=== PATIENT | male | born 1995 | race Caucasian/White ===

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

== ENCOUNTER 2020-04-01 16:44 | Inpatient (IN) | payer BC ==
[2020-04-01] MEDS ORDERED: HYDROmorphone 0.5 MG/0.5 ML Syringe IVPUSH ONE ×2 (17:07→19:13)
[2020-04-01] MEDS ORDERED: Ondansetron 4 MG/2 ML SDV IVPUSH ONE (17:07)
[2020-04-01] MEDS ORDERED: Sodium Chloride 0.9% 1,000 ML IV SCH (17:15)
--- NOTE | 2020-04-01 17:22 | EDM.PDOC ---
ED HPI GENERAL MEDICAL PROBLEM - General Chief Complaint: Abdominal Pain Stated Complaint: ABD PAIN AND WAS VOMITING Time Seen by Provider: 04/01/20 17:00 Source of Information: Reports: Patient, Family History Limitations: Reports: No Limitations - History of Present Illness INITIAL COMMENTS - FREE TEXT/NARRATIVE: 24-year-old male who developed nausea and vomiting 3 hours ago, is having intense abdominal cramps and vomiting but no diarrhea. No radiation of pain to the back, no fevers or chills. He arrives very anxious and uncomfortable. I saw him with a similar syndrome 2 years ago and his work-up was negative. Onset: Sudden (Started fairly suddenly 3-1/2 hours ago) Location: Reports: Abdomen Improves with: Reports: None Worsens with: Reports: Other (Trying to eat or drink, causes him to vomit) Associated Symptoms: Reports: Nausea/Vomiting, Other (Abdominal cramps). Denies: Chest Pain, Cough, Fever/Chills Right Lower Abdomen Pain Score (Numeric/FACES): 7 - Related Data Allergies Allergy/AdvReac Type Severity Reaction Status Date / Time Sulfa (Sulfonamide Allergy Cannot Verified 04/01/20 16:59 Antibiotics) Remember Home Meds: Home Meds NK [No Known Home Meds] 11/13/17 [History] Past Medical History Cardiovascular History: Reports: Pacemaker Musculoskeletal History: Reports: Fracture Other Musculoskeletal History: finger Neurological History: Reports: Concussion Psychiatric History: Reports: Anxiety, Depression Hematologic History: Reports: Blood Transfusion(s) Social & Family History - Tobacco Use Tobacco Use Status *Q: Current Every Day Tobacco User Years of Tobacco use: 4 Packs/Tins Daily: 1 - Caffeine Use Caffeine Use: Reports: Energy Drinks, Soda - Recreational Drug Use Recreational Drug Use: No ED ROS GENERAL - Review of Systems Review Of Systems: See Below Constitutional: Reports: Malaise. Denies: Fever, Chills HEENT: Denies: Vision Change Respiratory: Denies: Shortness of Breath Cardiovascular: Denies: Chest Pain, Palpitations GI/Abdominal: Reports: Abdominal Pain, Nausea, Vomiting. Denies: Diarrhea Skin: Reports: No Symptoms Neurological: Reports: Dizziness. Denies: Headache Psychiatric: Reports: Anxiety ED EXAM, GI/ABD - Physical Exam Exam: See Below Exam Limited By: No Limitations General Appearance: Alert, Moderate Distress (Patient looks very uncomfortable, mildly hyperventilating) Eyes: Bilateral: Normal Appearance Head: Atraumatic Respiratory/Chest: Lungs Clear Cardiovascular: Regular Rate, Rhythm GI/Abdominal Exam: Tender (Patient has diffuse tenderness to palpation over the entire abdomen with guarding, possible mild distention), Abnormal Bowel Sounds (Bowel sounds to somewhat high-pitched and are very active) Neurological: Alert, Oriented Psychiatric: Anxious Skin Exam: Warm, Dry Course - Vital Signs Last Recorded V/S: Last Vital Signs Temp 96.9 F 04/01/20 17:03 Pulse 65 04/01/20 18:25 Resp 28 H 04/01/20 17:03 BP 136/85 04/01/20 18:25 Pulse Ox 92 L 04/01/20 18:25 - Orders/Labs/Meds Orders: Active Orders 24 hr Category Date Time Status DRUG SCREEN, URINE [URCHEM] Stat Lab 04/01/20 17:08 Ordered UA W/MICROSCOPIC [URIN] Urgent Lab 04/01/20 17:07 Ordered Iopamidol [Isovue-300 (61%)] Med 04/01/20 18:15 Active 100 ml IV . DIRECTED Sodium Chloride 0.9% [Normal Saline] 1,000 ml Med 04/01/20 17:15 Active IV ASDIRECTED Sodium Chloride 0.9% [Normal Saline] 80 ml Med 04/01/20 18:15 Active IV ASDIRECTED Sodium Chloride 0.9% [Saline Flush] Med 04/01/20 18:01 Active 10 ml FLUSH ASDIRECTED PRN Medication Orders Sodium Chloride (Normal Saline) 1,000 mls @ 1,000 mls/hr IV ASDIRECTED DYLAN Last Admin: 04/01/20 17:25 Dose: 1,000 mls/hr Documented by: RODNEY Sodium Chloride (Normal Saline) 80 mls @ 3 mls/sec IV ASDIRECTED DYLAN Last Admin: 04/01/20 18:08 Dose: 3 mls/sec Documented by: DAVYALY Iopamidol (Isovue-300 (61%)) 100 ml IV . DIRECTED DYLAN Last Admin: 04/01/20 18:08 Dose: 100 ml Documented by: DAVYALY Sodium Chloride (Saline Flush) 10 ml FLUSH ASDIRECTED PRN PRN Reason: Keep Vein Open Last Admin: 04/01/20 18:07 Dose: 10 ml Documented by: Mapori Labs: Laboratory Tests 04/01/20 04/01/20 Range/Units 17:16 17:16 WBC 18.6 H (4.5-11.0) K/uL RBC 4.90 (4.30-5.90) M/uL Hgb 13.9 (12.0-15.0) g/dL Hct 40.4 (40.0-54.0) % MCV 82 (80-98) fL MCH 28 (27-31) pg MCHC 34 (32-36) % Plt Count 328 (150-400) K/uL Neut % (Auto) 81 H (36-66) % Lymph % (Auto) 10 L (24-44) % [place] % (Auto) 8 H (2-6) % Eos % (Auto) 1 L (2-4) % Baso % (Auto) 0 (0-1) % Sodium 138 L (140-148) mmol/L Potassium 3.4 L (3.6-5.2) mmol/L Chloride 102 (100-108) mmol/L Carbon Dioxide 21 (21-32) mmol/L Anion Gap 18.4 H (5.0-14.0) mmol/L BUN 16 D (7-18) mg/dL Creatinine 1.0 (0.8-1.3) mg/dL Est Cr Clr Drug Dosing 101.84 mL/min Estimated GFR (MDRD) > 60 (>60) Glucose 107 H (74-106) mg/dL Calcium 9.3 (8.5-10.1) mg/dL Total Bilirubin 0.6 (0.2-1.0) mg/dL AST 16 (15-37) U/L ALT 30 (12-78) U/L Alkaline Phosphatase 72 (46-116) U/L Total Protein 7.9 (6.4-8.2) g/dL Albumin 4.2 (3.4-5.0) g/dL Globulin 3.7 H (2.3-3.5) g/dL Albumin/Globulin Ratio 1.1 L (1.2-2.2) Lipase 64 L (73-393) U/L Meds: Medications Generic Name Dose Route Start Last Admin Trade Name Freq PRN Reason Stop Dose Admin Sodium Chloride 1,000 mls @ 1,000 mls/hr 04/01/20 17:15 04/01/20 17:25 Normal Saline IV 1,000 mls/hr ASDIRECTED DYLAN Administration Sodium Chloride 80 mls @ 3 mls/sec 04/01/20 18:15 04/01/20 18:08 Normal Saline IV 3 mls/sec ASDIRECTED DYLAN Administration Iopamidol 100 ml 04/01/20 18:15 04/01/20 18:08 Isovue-300 (61%) IV 100 ml . DIRECTED DYLAN Administration Sodium Chloride 10 ml 04/01/20 18:01 04/01/20 18:07 Saline Flush FLUSH 10 ml ASDIRECTED PRN Administration Keep Vein Open Discontinued Medications Generic Name Dose Route Start Last Admin Trade Name Virgilq PRN Reason Stop Dose Admin Hydromorphone HCl 0.5 mg 04/01/20 17:07 04/01/20 17:29 Dilaudid IVPUSH 04/01/20 17:08 0.5 mg ONETIME ONE Administration Hydromorphone HCl 0.5 mg 04/01/20 19:13 04/01/20 19:22 Dilaudid IVPUSH 04/01/20 19:14 0.5 mg ONETIME ONE Administration Ondansetron HCl 4 mg 04/01/20 17:07 04/01/20 17:25 Zofran IVPUSH 04/01/20 17:08 4 mg ONETIME ONE Administration - Re-Assessments/Exams Free Text/Narrative Re-Assessment/Exam: 04/01/20 17:21 IV was started, patient will be given 1 L normal saline, 0.5 mg of IV Dilaudid and 4 mg of Zofran. CBC CMP were obtained as well as a urine and urine drug screen. CT of the abdomen and pelvis may be needed again to rule out bowel obstruction which was negative last time. 04/01/20 17:47 Patient was not able to give a urine initially. Pain only minimally decreased with the medications, still very uncomfortable. White count is 18,000, electrolytes are relatively normal. Lipase is normal. We will get a CT of the abdomen and pelvis with IV contrast to rule out bowel obstruction and continue to try to get the urine. 04/01/20 18:59 Impression: Demonstration of a dilated, fluid-filled appendix measuring up to 1.3 centimeters with calcified appendicolith at the base with mild periappendiceal inflammatory changes likely representing uncomplicated appendicitis. Findings were discussed with Dr. Ramesh at 6:50 p.m. 04/01/2020 Reexamined the patient after the above findings were were found on the CT scan, and now that he has calmed down some he is more sore in the lower abdomen. Dr. Alaniz was consulted to admit the patient for acute appendicitis. Departure - Departure Time of Disposition: 20:22 Disposition: Admitted As Inpatient 68 Clinical Impression: Abdominal pain Qualifiers: Abdominal location: generalized Qualified Code(s): R10.84 - Generalized abdominal pain Appendicitis Qualifiers: Appendicitis type: acute appendicitis Acute appendicitis type: with localized peritonitis Appendicitis gangrene presence: without gangrene Appendicitis perforation presence: without perforation Appendicitis abscess presence: without abscess Qualified Code(s): K35.30 - Acute appendicitis with localized peritonitis, without perforation or gangrene - Discharge Information Sepsis Event Note (ED) - Evaluation Sepsis Screening Result: No Definite Risk - Focused Exam Vital Signs: Vital Signs Temp Pulse Resp BP BP Pulse Ox 04/01/20 18:25 65 136/85 92 L 04/01/20 17:03 96.9 F 60 28 H 143/68 H 100 04/01/20 16:56 96.9 F 60 28 H 143/68 H 100 - My Orders Last 24 Hours: My Active Orders 04/01/20 17:07 UA W/MICROSCOPIC [URIN] Urgent 04/01/20 17:08 DRUG SCREEN, URINE [URCHEM] Stat 04/01/20 17:15 Sodium Chloride 0.9% [Normal Saline] 1,000 ml IV ASDIRECTED 04/01/20 18:01 Sodium Chloride 0.9% [Saline Flush] 10 ml FLUSH ASDIRECTED PRN 04/01/20 18:15 Iopamidol [Isovue-300 (61%)] 100 ml IV . DIRECTED Sodium Chloride 0.9% [Normal Saline] 80 ml IV ASDIRECTED - Assessment/Plan Last 24 Hours: My Active Orders 04/01/20 17:07 UA W/MICROSCOPIC [URIN] Urgent 04/01/20 17:08 DRUG SCREEN, URINE [URCHEM] Stat 04/01/20 17:15 Sodium Chloride 0.9% [Normal Saline] 1,000 ml IV ASDIRECTED 04/01/20 18:01 Sodium Chloride 0.9% [Saline Flush] 10 ml FLUSH ASDIRECTED PRN 04/01/20 18:15 Iopamidol [Isovue-300 (61%)] 100 ml IV . DIRECTED Sodium Chloride 0.9% [Normal Saline] 80 ml IV ASDIRECTED
[2020-04-01] MEDS ORDERED: Sodium Chloride 0.9% 10 ML Syringe FLUSH PRN (18:01)
[2020-04-01] MEDS ORDERED: Sodium Chloride 0.9% 80 ML IV SCH (18:15)
[2020-04-01] MEDS ORDERED: Iopamidol 612 MG/ML 100 ML Bottle IV SCH (18:15)
--- NOTE | 2020-04-01 18:58 | CRLCT ---
Indication: Abdominal pain, evaluate for possible bowel obstruction Technique: Volumetric multidetector CT images of the abdomen and pelvis were obtained after the administration of intravenous contrast. 100 cc Isovue-300 low osmolar Comparison: CT abdomen and pelvis dated November 13, 2017 Findings: The lung bases are clear. The liver is somewhat prominent with a heterogeneous attenuation which could represent slow filling and phase contrast differences versus edema of uncertain clinical significance. The portal vein is patent. The gallbladder is unremarkable without evidence of radiopaque calculus. There is no significant common biliary ductal dilatation or abrupt cut off. The spleen is normal in enhancement and size. The stomach and duodenum are grossly unremarkable. The pancreas is normal in enhancement without significant atrophy. The adrenal glands are unremarkable. The kidneys demonstrate preserved corticomedullary differentiation without evidence of obstructive uropathy. There is a mild amount of stool seen throughout the colon. There is mild distal colonic diverticulosis. There is a dilated fluid-filled appendix measuring up to 1.3 centimeters with mild periappendiceal inflammatory change. There is a calcified appendicolith at the base of the appendix. There is no significant mesenteric, retroperitoneal, or pelvic sidewall lymph nodes. The aorta is nonaneurysmal. There is no significant atherosclerotic disease appreciated. The solid pelvic viscera are grossly unremarkable. There is no free fluid or free air. The anterior abdominal wall is intact without significant hernias. There is demonstration of a stimulator device within the left upper quadrant. The lumbar vertebral body heights are grossly maintained in satisfactory alignment without evidence of displaced fracture, lytic or blastic lesion. Impression: Demonstration of a dilated, fluid-filled appendix measuring up to 1.3 centimeters with calcified appendicolith at the base with mild periappendiceal inflammatory changes likely representing uncomplicated appendicitis. Findings were discussed with Dr. Ramesh at 6:50 p.m. 04/01/[address] note that all CT scans at this facility use dose modulation, iterative reconstruction, and/or weight-based dosing when appropriate to reduce radiation dose to as low as reasonably achievable. Dictated by Alonso Petty MD @ Apr 01 2020 6:46PM Signed by Dr. Alonso Petty @ Apr 01 2020 6:56PM
[2020-04-01] MEDS ORDERED: Ondansetron 4 MG/2 ML SDV IVPUSH PRN (20:51)
[2020-04-01] MEDS ORDERED: Scopolamine 1.5 MG Transdermal Patch TOP PRN (20:52)
[2020-04-01] MEDS ORDERED: Promethazine 25 MG/ML SDV IV PRN (20:54)
[2020-04-01] MEDS ORDERED: diphenhydrAMINE 50 MG/ML SDV IVPUSH PRN (20:56)
[2020-04-01] MEDS ORDERED: diphenhydrAMINE 25 MG Cap PO PRN (20:57)
[2020-04-01] MEDS ORDERED: Nicotine 14 MG/24 Hr Patch TRDERM PRN (21:00)
[2020-04-01] MEDS ORDERED: fentaNYL 100 MCG/2 ML SDV IV PRN (21:01)
[2020-04-01] MEDS: Sodium Chloride 0.9% 1,000 ML IV SCH (21:11)
[2020-04-01] MEDS: Morphine 4 MG/ML Syringe IVPUSH PRN ×3 (21:21→23:50)
[2020-04-01] MEDS: Piperacillin/Tazobactam 4.5 GM in Sodium Chloride 0.9% 100 ML IV SCH (21:26)
[2020-04-02] MEDS: Morphine 4 MG/ML Syringe IVPUSH PRN ×3 (02:09→05:19)
[2020-04-02] MEDS: Piperacillin/Tazobactam 4.5 GM in Sodium Chloride 0.9% 100 ML IV SCH (05:37)
[2020-04-02] MEDS ORDERED: Bupivacaine 0.5%/EPINEPHrine 1:200,000 50 ML MDV ONE (05:48)
[2020-04-02] MEDS ORDERED: fentaNYL 250 MCG/5 ML SDV ONE (06:53)
[2020-04-02] MEDS ORDERED: Rocuronium 50 MG/5 ML Vial ONE (07:01)
[2020-04-02] MEDS ORDERED: Neostigmine Methylsulfate 1 MG/ML 5 ML Syringe ONE (07:01)
[2020-04-02] MEDS ORDERED: Ondansetron 4 MG/2 ML SDV ONE (07:01)
[2020-04-02] MEDS ORDERED: Glycopyrrolate 0.2 MG/ML 5 ML MDV ONE (07:01)
[2020-04-02] MEDS ORDERED: Dexamethasone 4 MG/ML SDV ONE (07:01)
[2020-04-02] MEDS ORDERED: Propofol 200 MG/20 ML SDV ONE (07:01)
[2020-04-02] MEDS ORDERED: Succinylcholine 200 MG/10 ML MDV ONE (07:01)
[2020-04-02] MEDS ORDERED: Ropivacaine 30 ML, dexAMETHasone 8 MG, EPINEPHrine 0.4 MG, Sodium Chloride 0.9% 47.6 ML NERVRT SCH ×4 (07:15)
[2020-04-02] MEDS ORDERED: fentaNYL 100 MCG/2 ML SDV ONE (07:20)
[2020-04-02] MEDS ORDERED: Ketorolac 60 MG/2 ML SDV ONE (07:25)
[2020-04-02] MEDS ORDERED: Lactated Ringers 1,000 ML ONE (07:30)
--- NOTE | 2020-04-02 08:09 | CONS ---
DATE OF SERVICE: 04/01/2020 REFERRING PHYSICIAN: CONSULTING PHYSICIAN: Johnnie Alaniz MD REASON FOR CONSULTATION: Abdominal pain. HISTORY OF PRESENT ILLNESS: This is a pleasant 24-year-old male, who developed a longstanding history of abdominal pain associated with nausea and vomiting. He was presented to the emergency room. He underwent a CT scan, which does show appendicitis. He has pain, which is 3 to 4 out of 10, modified by the aforementioned nausea. This is an ongoing problem for him. PAST MEDICAL HISTORY: Pacemaker as a child. SOCIAL HISTORY: He does smoke. FAMILY HISTORY: appendicitis. REVIEW OF SYSTEMS: GENERAL: The patient is appropriate for condition. HEENT: No significant abnormalities. CARDIOVASCULAR: Pacemaker as described above. RESPIRATORY: No recent respiratory issues. GASTROINTESTINAL: As described above with respect to abdominal pain. GENITOURINARY: No dysuria. NEUROLOGICAL: No symptoms. PSYCHIATRIC: No symptoms. The remainder of the review of systems is reviewed and is negative. PHYSICAL EXAMINATION: VITAL SIGNS: Stable. GENERAL: The patient is resting comfortably. HEENT: Pupils are equal. NECK: Supple. LUNGS: Clear. CARDIOVASCULAR: Regular rhythm and rate. RESPIRATORY: Lungs are clear to auscultation bilaterally. ABDOMEN: Pain with palpation, right lower quadrant. Midline scar, transverse, consistent with pacemaker descriptions. EXTREMITIES: Full range of motion. NEUROLOGICAL: Oriented x3. LABORATORY RESULTS: Creatinine is normal. RADIOGRAPHIC DATA: CT scan: Appendicitis as described above. ASSESSMENT: Appendicitis. PLAN: The patient will be admitted for IV antibiotics. He will undergo a laparoscopic appendectomy in the a.m. This is in conjunction with a TAP block. We discussed the risks, benefits, alternatives, and limitations, including, but not limited to, infection, bleeding, injury to abdominal structures, possibility of open surgery, abscess, hematoma, seroma, injury to bowel, and other risks not listed here. The patient understands these risks and wishes to proceed. He will be on a full liquid diet this evening and n.p.o. at midnight. COVID test is pending. Johnnie Alaniz MD /[id number]
--- NOTE | 2020-04-02 08:29 | OR ---
DATE OF PROCEDURE: 04/01/2020 SURGEON: Johnnie Alaniz MD PROCEDURE: Laparoscopic appendectomy. FINDINGS: 1. Nonruptured appendicitis. 2. No evidence of abscess. COMPLICATIONS: None. WATERMASTER: None. PREOPERATIVE DIAGNOSIS: Appendicitis. POSTOPERATIVE DIAGNOSIS: Appendicitis. RISKS: Risks, benefits, alternatives, and limitations including, but not limited to infection, bleeding, perforation, abscess formation, hematoma, seroma, possibility of open surgery and other risks not listed here were explained to the patient, who wished to proceed. DESCRIPTION OF PROCEDURE: The patient was placed in a supine position. A supraumbilical curvilinear incision was made. A drop needle was introduced and a drop test was performed without abnormality. The abdomen was subsequently insufflated. This was followed by an Optiview trocar. No evidence of enterotomy or injury was noted. Two additional 5 mm ports were entered under direct visualization. The appendix was readily identified in an antececal position. There was no evidence of abscess. This was transected using a irene load stapler. Delivered through the umbilical port without difficulty. The pressure was dropped within the abdomen after the port was reintroduced. No evidence of bleeding or abnormality. The abdomen was irrigated with approximately 1 L of irrigation. The patient's position was moved multiple times to maximize removal of fluid. The air was removed. The wounds were closed with 3-0 Vicryl and 4-0 Vicryl in interrupted running fashion and Dermabond was applied. The patient tolerated the procedure well. Johnnie Alaniz MD /[id number]
[2020-04-02] MEDS: Sodium Chloride 0.9% 1,000 ML IV SCH (08:42)
[2020-04-02] MEDS: Piperacillin/Tazobactam/Dext 4.5 GM in Premix Bag 1 BAG IV SCH ×2 (14:12→21:15)
[2020-04-03 04:27] VITALS: PULSE 64
[2020-04-03] MEDS: Morphine 4 MG/ML Syringe IVPUSH PRN (04:33)
[2020-04-03] MEDS: Piperacillin/Tazobactam/Dext 4.5 GM in Premix Bag 1 BAG IV SCH ×2 (04:35→05:52)
[2020-04-03 08:40] VITALS: BP 121/41
--- NOTE | 2020-04-03 12:58 | PCM.SN.2 ---
- Free Text/Narrative Note: Mr. Scanlon is a 24-year-old gentleman who I been asked to see prior to discharge this morning by Dr. Alaniz. He was admitted yesterday with acute appendicitis and underwent laparoscopic appendectomy by Dr. Alaniz. He has done well in the postoperative. Denies shortness of breath fever chills or sweats. He is tolerated his diet over the last 24 hours with no nausea or vomiting. He does have incisional pain as would be expected. On examination lungs are clear with no rales rhonchi or wheezes. Cardiac regular rate and rhythm S1-S2 normal no murmurs S3 or S4 no jugular venous distention. Abdomen incisions appear to be intact with no evidence of underlying or developing infection. He is stable 24 hours post appendectomy and will be discharged home per Dr. Alaniz's orders.
== END 2020-04-03 10:35 | disposition home or self-care (01) | DRG 225 ==
LOC: JP.ED 16:44 → JP.MS 19:00
PROVIDERS: ADMIT Surgery; ATTEND Surgery
PROC: 0DTJ4ZZ Resection of Appendix, Percutaneous Endoscopic Approach (ICD-10-PCS; principal; 2020-04-01)
DX: K35.30 Acute appendicitis with localized peritonitis, without perforation or gangrene (principal); F41.9 Anxiety disorder, unspecified; Z20.828 Contact with and (suspected) exposure to other viral communicable diseases; F32.9 Major depressive disorder, single episode, unspecified; F17.200 Nicotine dependence, unspecified, uncomplicated; Z88.2 Allergy status to sulfonamides; Z95.0 Presence of cardiac pacemaker
CPT/HCPCS: 36415; 74177; 80048; 80053; 80305-QW; 81001; 83690; 85025; 85027; 96361; 96374; 96375; 96376; 99285-25; J0171; J0330; J1100; J1170; J1200; J1885; J2270; J2405; J2543; J2704; J2710; J2795; J3010; J3490; J7030; J7050; J7120; Q9967; U0002

== ENCOUNTER 2021-07-21 01:07 | Emergency (ER) | payer BC ==
[2021-07-21 01:40] VITALS: BP 130/70; PULSE 56
== END 2021-07-21 02:56 | disposition home or self-care (01) ==
LOC: JP.ED 01:07
DX: S52.021A Displaced fracture of olecranon process without intraarticular extension of right ulna, initial encounter for closed fracture (principal); Z88.2 Allergy status to sulfonamides; Z95.0 Presence of cardiac pacemaker; W01.198A Fall on same level from slipping, tripping and stumbling with subsequent striking against other object, initial encounter
CPT/HCPCS: 29105; 73080-RT; 99283; 99283-25

== ENCOUNTER 2021-07-30 07:05 | Day surgery (SDC) | payer BC ==
[2021-07-30] MEDS ORDERED: Nozin Nasal Sanitizer NASBOTH ONE (07:07)
[2021-07-30] MEDS ORDERED: Lactated Ringers 1,000 ML IV SCH (07:15)
[2021-07-30] MEDS ORDERED: fentaNYL 250 MCG/5 ML SDV ONE (07:39)
[2021-07-30] MEDS ORDERED: Neostigmine Methylsulfate 1 MG/ML 5 ML Syringe ONE (07:40)
[2021-07-30] MEDS ORDERED: Glycopyrrolate 0.2 MG/ML 5 ML MDV ONE (07:40)
[2021-07-30] MEDS ORDERED: Propofol 200 MG/20 ML SDV ONE (07:40)
[2021-07-30] MEDS ORDERED: Ondansetron 4 MG/2 ML SDV ONE (07:40)
[2021-07-30] MEDS ORDERED: Rocuronium 50 MG/5 ML Vial ONE (07:40)
[2021-07-30] MEDS ORDERED: Succinylcholine 200 MG/10 ML MDV ONE (07:40)
[2021-07-30] MEDS ORDERED: Dexamethasone 4 MG/ML SDV ONE (07:40)
[2021-07-30] MEDS ORDERED: Bupivacaine 0.5% 50 ML MDV ONE (07:41)
[2021-07-30] MEDS ORDERED: ceFAZolin 2 GM in Sodium Chloride 0.9% 100 ML IV ONE (08:15)
[2021-07-30] MEDS: ceFAZolin 2 GM in Premix Bag 1 BAG IV ONE ×2 (08:55→10:51)
[2021-07-30 09:53] VITALS: BP 140/68; PULSE 46
== END 2021-07-30 09:55 | disposition home or self-care (01) ==
LOC: JP.SDS 07:05
PROVIDERS: ATTEND Specialist
DX: S52.021A Displaced fracture of olecranon process without intraarticular extension of right ulna, initial encounter for closed fracture (principal); M67.823 Other specified disorders of tendon, right elbow; F41.9 Anxiety disorder, unspecified; F32.A Depression, unspecified; F17.210 Nicotine dependence, cigarettes, uncomplicated; Z98.890 Other specified postprocedural states; Z90.49 Acquired absence of other specified parts of digestive tract; Z88.2 Allergy status to sulfonamides
CPT/HCPCS: 36415; 80048; 85027; A9270-GY; J0330; J0690; J1100; J2405; J2704; J2710; J3010; J3490; J7120

== ENCOUNTER 2021-08-06 06:40 | Day surgery (SDC) | payer BC ==
[2021-08-06] MEDS ORDERED: Bupivacaine 0.5% 30 ML SDV ONE (07:11)
[2021-08-06] MEDS ORDERED: Neostigmine Methylsulfate 1 MG/ML 5 ML Syringe ONE (07:28)
[2021-08-06] MEDS ORDERED: Dexamethasone 4 MG/ML SDV ONE (07:28)
[2021-08-06] MEDS ORDERED: Ondansetron 4 MG/2 ML SDV ONE (07:28)
[2021-08-06] MEDS ORDERED: Glycopyrrolate 0.2 MG/ML 5 ML MDV ONE (07:28)
[2021-08-06] MEDS ORDERED: Propofol 200 MG/20 ML SDV ONE (07:28)
[2021-08-06] MEDS ORDERED: fentaNYL 250 MCG/5 ML SDV ONE ×2 (07:28→09:06)
[2021-08-06] MEDS ORDERED: Rocuronium 50 MG/5 ML Vial ONE (07:28)
[2021-08-06] MEDS ORDERED: ceFAZolin 2 GM in Premix Bag 1 BAG IV ONE (07:30)
[2021-08-06] MEDS ORDERED: Lactated Ringers 1,000 ML IV SCH (07:30)
[2021-08-06 07:45] LABS: CORONAVIRUS COVID-19 NAA NEGATIVE (NEGATIVE)
[2021-08-06] MEDS ORDERED: Nozin Nasal Sanitizer NASBOTH ONE (07:52)
[2021-08-06] MEDS ORDERED: Acetaminophen/HYDROcodone 325-5 MG Tab PO ONE (10:52)
[2021-08-06 11:01] VITALS: BP 125/77; PULSE 60
== END 2021-08-06 11:25 | disposition home or self-care (01) ==
LOC: JP.SDS 06:40
PROVIDERS: ATTEND Specialist
DX: S52.021A Displaced fracture of olecranon process without intraarticular extension of right ulna, initial encounter for closed fracture (principal); F17.200 Nicotine dependence, unspecified, uncomplicated; Z88.2 Allergy status to sulfonamides; Z01.812 Encounter for preprocedural laboratory examination; Z20.822 Contact with and (suspected) exposure to COVID-19; X58.XXXA Exposure to other specified factors, initial encounter
CPT/HCPCS: 0241U; A9270-GY; C1713; J0690; J1100; J2405; J2704; J2710; J3010; J3490; J7120

== ENCOUNTER 2022-11-21 19:49 | Emergency (ER) | payer OTHER ==
[2022-11-21 20:03] VITALS: BP 142/80; PULSE 64
[2022-11-21] MEDS ORDERED: Ondansetron 4 MG Tab.DIS PO ONE (20:39)
== END 2022-11-21 21:19 | disposition home or self-care (01) ==
LOC: JP.ED 19:49
DX: J02.0 Streptococcal pharyngitis (principal); F17.210 Nicotine dependence, cigarettes, uncomplicated; Z88.2 Allergy status to sulfonamides
CPT/HCPCS: 87651; 99282; 99284; Q0162